=== PATIENT | male | born 1955 | race Caucasian/White ===

== ENCOUNTER 2020-10-06 13:27 | Outpatient (CLI) | payer OTHER, SELFPAY ==
--- NOTE | 2020-10-06 13:56 | ECHO_ITS ---
Patient Info Name: Manny Calvert Age: 64 years : 1955 Gender: Male Ht: 71 in Wt: 230 lbs BSA: 2.32 m2 HR: 57 bpm BP: 158 / 94 mmHg Technical Quality: Good Exam Date: 10/06/2020 2:12 PM Exam Location: [facility] Patient Status: Outpatient Admit Date: 10/06/2020 Staff Ordering Physician: Jose Vela MD Gastroenterology Technician: Eliana Jackson RDCS Attending Provider: Jose Vela MD Referring Physician: Mirian SALCEDO; Exam Type: CA echo doppler color flow Study Info Indications - cardiac murmur Complete two-dimensional, color flow and Doppler transthoracic echocardiogram is performed. Summary 1. Complete two-dimensional, color flow and Doppler transthoracic echocardiogram is performed. 2. Left ventricular chamber dimension is mildly enlarged. 3. Left ventricular systolic function is normal, estimated at 60-65%. 4. There is mildly increased left ventricular wall thickness. 5. The left ventricular diastolic function is grade II diastolic dysfunction. 6. E/e' 9 is minimally elevated. 7. Left atrial chamber dimension is mildly enlarged. 8. There is mild aortic valve sclerosis. 9. There is mild aortic valve regurgitation. 10. There is trace mitral valve regurgitation. 11. No pulmonary hypertension, estimated pulmonary arterial systolic pressure is 21 mmHg. 12. There is trace pulmonic regurgitation. Left Ventricle E/e' 9 is minimally elevated. Left ventricular chamber dimension is mildly enlarged. Left ventricular systolic function is normal, estimated at 60-65%. There is mildly increased left ventricular wall thickness. The left ventricular diastolic function is grade II diastolic dysfunction. Right Ventricle Right ventricular chamber dimension is normal. Right ventricular systolic function is normal. Left Atria Left atrial chamber dimension is mildly enlarged. Right Atria Right atrial chamber dimension is normal. Aortic Valve The aortic valve is trileaflet. There is mild aortic valve sclerosis. There is no aortic valve stenosis. There is mild aortic valve regurgitation. Pulmonic Valve There is trace pulmonic regurgitation. Mitral Valve There is no mitral valve stenosis. There is trace mitral valve regurgitation. Tricuspid Valve There is no tricuspid valve regurgitation. No pulmonary hypertension, estimated pulmonary arterial systolic pressure is 21 mmHg. Pericardium/Pleural There is no pericardial effusion. Inferior Vena Cava Normal inferior vena cava with >50% collapse upon inspiration consistent with normal right atrial pressure, 5 mmHg. Aorta The aortic root size at the sinus of Valsalva is normal. Left Ventricular Outflow Tract Name Value Normal LVOT 2D LVOT Diameter 2.1 cm LVOT Doppler LVOT Peak Gradient 7 mmHg LVOT Mean Gradient 4 mmHg LVOT VTI 30 cm LVOT VTI/AV VTI Ratio 0.7 LVOT Stroke Volume 102 ml Pulmonic Valve Nam
== END 2020-10-06 13:28 | disposition home or self-care (01) ==
PROVIDERS: PCP Family Medicine; Visit Provider Family Medicine
DX: R01.1 Cardiac murmur, unspecified (principal); I35.1 Nonrheumatic aortic (valve) insufficiency
CPT/HCPCS: 93306

== ENCOUNTER 2022-10-20 08:48 | Outpatient (CLI) | payer OTHER, SELFPAY ==
[2022-10-20 18:36] LABS: Anion Gap 6 mmol/L (8-16); Aspartate Amino Transferase 31 U/L (17-59); Bilirubin,Total 0.6 mg/dL (0.2-1.3); Blood Urea Nitrogen 10 mg/dL (9-20); Calcium 8.3 mg/dL (8.4-10.2); Carbon Dioxide 31 mmol/L (22-30); Chloride 101 mmol/L (98-107); Estimated Glomerular Filt Rate > 60; Glucose 100 mg/dL (65-110); Potassium 4.1 mmol/L (3.4-5.0); Sodium 138 mmol/L (137-145)
[2022-10-20 18:37] LABS: Alanine Aminotransferase 25 U/L (6-50); Albumin Level 3.9 g/dL (3.5-5.1); Alkaline Phosphatase 103 U/L (38-126); Cholesterol 161 mg/dL (0-200); HDL Direct 23 mg/dL; Triglycerides 191 mg/dL (<150)
[2022-10-20 18:47] LABS: LDL Cholesterol Direct 103 mg/dL
[2022-10-20 19:03] LABS: Prostate Specific Antigen 0.9 ng/mL (< OR = 4.0)
== END 2022-10-20 08:49 | disposition home or self-care (01) ==
LOC: ANHGOSHLAB 08:50
PROVIDERS: PCP Family Medicine; Visit Provider Family Medicine
DX: E78.2 Mixed hyperlipidemia (principal); I10 Essential (primary) hypertension; Z12.5 Encounter for screening for malignant neoplasm of prostate
CPT/HCPCS: 36415; 80053; 80061; 84153; G0103

== ENCOUNTER 2023-03-23 07:59 | Outpatient (CLI) | payer OTHER, SELFPAY ==
[2023-03-23 18:15] LABS: Hemoglobin 13.3 g/dL (14.0-18.0); Mean Corpuscular HGB Conc 31.7 g/dl (32-36); Mean Corpuscular Hemoglobin 28.4 pg (26-34); Mean Corpuscular Volume 89.6 fl (80-100); Mean Platelet Volume 10.1 fl (7.4-10.4); Platelet Count Result 309 k/mm3 (150-375); Red Blood Count 4.69 M/mm3 (4.6-6.20); White Blood Count 4.1 K/mm3 (4.5-10.0)
[2023-03-23 18:17] LABS: Alanine Aminotransferase 18 U/L (6-50); Albumin Level 3.9 g/dL (3.5-5.1); Alkaline Phosphatase 83 U/L (38-126); Anion Gap 8 mmol/L (8-16); Aspartate Amino Transferase 27 U/L (17-59); Bilirubin,Total 0.9 mg/dL (0.2-1.3); Blood Urea Nitrogen 17 mg/dL (9-20); Calcium 8.7 mg/dL (8.4-10.2); Carbon Dioxide 27 mmol/L (22-30); Chloride 102 mmol/L (98-107); Cholesterol 158 mg/dL (0-200); Estimated Glomerular Filt Rate > 60; Glucose 115 mg/dL (65-110); HDL Direct 35 mg/dL; Potassium 3.7 mmol/L (3.4-5.0); Sodium 137 mmol/L (137-145); Triglycerides 111 mg/dL (<150)
[2023-03-23 18:28] LABS: LDL Cholesterol Direct 97 mg/dL
== END 2023-03-23 08:00 | disposition home or self-care (01) ==
PROVIDERS: PCP Family Medicine; Visit Provider Family Medicine
DX: E78.2 Mixed hyperlipidemia (principal); I10 Essential (primary) hypertension; Z79.899 Other long term (current) drug therapy
CPT/HCPCS: 36415; 80053; 80061; 84443; 85027

== ENCOUNTER 2023-06-25 03:03 | Day surgery (SDC) | payer OTHER, SELFPAY ==
[2023-05-31 09:55] VITALS: BMI 27.3
--- NOTE | 2023-06-22 12:12 | SUR.PREOP ---
Patient called regarding upcoming procedure. Reviewed preop instructions, appointment times, and procedure prep.
[2023-06-25 06:58] VITALS: BP 136/82; PULSE 61; RESP 18; TEMP 36.7; O2SAT 98
[2023-06-25] MEDS: LACTATED RINGERS 1,000 ML 150 ML IV CONT (07:05)
--- NOTE | 2023-06-25 07:10 | WPDANESEPPF ---
Anes - Initial Pre Proc Eval Procedure: Operation Date: 06/25/23 08:00 Proposed Procedures p Colonoscopy - Norm Eisenberg MD Date/Time: 06/25/23 07:10 Surgeon: Norm Eisenberg MD Pre Op Diagnosis: hx colon polyps Patient Data Age: 67 Gender: M Height: 1.8 m Weight: 88.2 kg Last Vital Signs Temp 36.7 C 06/25/23 06:58 Pulse 61 06/25/23 06:58 Resp 18 06/25/23 06:58 BP 136/82 06/25/23 06:58 Pulse Ox 98 06/25/23 06:58 O2 Del Method Room Air 06/25/23 06:58 Allergies Allergy/AdvReac Type Severity Reaction Status Date / Time lisinopril Allergy Severe angioedema Verified 05/31/23 09:53 lip Home Medications Medication Instructions Recorded Confirmed Type amlodipine 10 mg tablet 10 mg PO DAILY #90 tabs 01/24/23 05/31/23 Rx metoprolol succinate 50 mg See Rx Instructions .Route 01/24/23 06/25/23 Rx tablet,extended release 24 hr .COMPLEX #90 tabs spironolactone 25 1 tablet PO DAILY #90 tabs 02/09/23 05/31/23 Rx mg-hydrochlorothiazide 25 mg tablet atorvastatin 40 mg tablet See Rx Instructions .Route 06/20/23 Rx .COMPLEX #90 tabs Patient hx anesthesia problems: none Family hx anesthesia problems: none Results Review: All pre-operative results and documents have been reviewed as part of the pre-operative evaluation. [facility] Past Medical History Medical History Hypercholesterolemia Hypertension Surgical History Surgical History H/O arthroscopic knee surgery H/O hernia repair H/O lumbar discectomy Family History Family History Father Diabetes mellitus Hypertension Family history of lung cancer, Onset Age: 91 Family history of malignant neoplasm of thyroid, Onset Age: 91 Family history of malignant neoplasm of kidney, Onset Age: 91 Other No family history of malignant neoplasm Social History Social History Smoking status: Never smoker Alcohol intake: current Drinks per week: 3 Alcohol use details: occasionnally Substance use: never Substance use type: does not use Lack of Transportation: No Lack of Food: Never True Current Housing: I Have Housing Concerned About Future Housing: No Difficulty Paying Gas/Electric Bills: No Difficulty Paying for Meds: No Currently Unemployed: No Education: High School Diploma/GED Difficulty w/ Childcare or Family Care: No Living arrangements: with family Occupation/Education: occupation Gender identity (if verbalized by the patient): Male Sexual Orientation (if Verbalized by the Patient): Straight or Heterosexual Spiritual care concerns: No Agree to blood products: Yes Anes - Eval Final PreProcedure Day of Procedure 06/25/23 07:10 Patient weight: overweight Heart: regular rate and rhythm Lungs: clear to auscultation Airway: Mallampati scale class II Neurological: alert and oriented Last oral intake: >/= 8 hours Emergent: no Anesthetic plan: proceed Anesthesia type and monitoring: general GIVS and standard monitoring Results Review: All pre-operative results and documents have been reviewed as part of the pre-operative evaluation. Informed Consent: The patient's anesthetic plan and its attendant risks and benefits were discussed with the patient/family/POA. Questions were solicited and answers provided to the satisfaction of the patient/family/POA.
--- NOTE | 2023-06-25 07:53 | PM.HPGS ---
History of Present Illness History of Present Illness Consent: Risks, benefits, and alternatives have been discussed and questions answered. Patient agrees to proceed with procedure. Chief complaint: hx colon polyps Narrative: Manny Calvert is a 67 year old male with colon polyp about 6 years ago Review of Systems Constitutional: Constitutional: Denies headache(s) and Denies weakness Eyes: Eyes: Denies blurry vision ENT: Reports Normal hearing present, Denies headache(s) and Denies neck pain Cardiovascular: Cardiovascular: Denies chest pain and Denies dyspnea Respiratory: Respiratory: Denies dyspnea Gastrointestinal: Gastrointestinal: Reports no additional gastrointestinal complaints Genitourinary: Genitourinary: Denies dysuria Musculoskeletal: Musculoskeletal: Denies neck pain Integumentary/Breasts: Skin/Breast: Denies dry skin Neurologic: Reports Normal hearing present, Denies headache(s) and Denies weakness Psychiatric: Psychiatric: Denies anxiety Endocrine: Endocrine: Denies change in body appearance Hematologic/Lymphatic: Hematologic/Lymphatic: Denies easy bleeding Allergic/Immunologic: Allergic/Immunologic: Denies urticaria PMFSH Past Medical History Medical History Hypercholesterolemia Hypertension Surgical History Surgical History H/O arthroscopic knee surgery H/O hernia repair H/O lumbar discectomy Family History Family History Father Diabetes mellitus Hypertension Family history of lung cancer, Onset Age: 91 Family history of malignant neoplasm of thyroid, Onset Age: 91 Family history of malignant neoplasm of kidney, Onset Age: 91 Other No family history of malignant neoplasm Social History Social History Smoking status: Never smoker Alcohol intake: current Drinks per week: 3 Alcohol use details: occasionnally Substance use: never Substance use type: does not use Lack of Transportation: No Lack of Food: Never True Current Housing: I Have Housing Concerned About Future Housing: No Difficulty Paying Gas/Electric Bills: No Difficulty Paying for Meds: No Currently Unemployed: No Education: High School Diploma/GED Difficulty w/ Childcare or Family Care: No Living arrangements: with family Occupation/Education: occupation Gender identity (if verbalized by the patient): Male Sexual Orientation (if Verbalized by the Patient): Straight or Heterosexual Spiritual care concerns: No Agree to blood products: Yes Meds Home Medications and Allergies Home Medications Medication Instructions Recorded Confirmed Type amlodipine 10 mg tablet 10 mg PO DAILY #90 tabs 01/24/23 05/31/23 Rx metoprolol succinate 50 mg See Rx Instructions .Route 01/24/23 06/25/23 Rx tablet,extended release 24 hr .COMPLEX #90 tabs spironolactone 25 1 tablet PO DAILY #90 tabs 02/09/23 05/31/23 Rx mg-hydrochlorothiazide 25 mg tablet atorvastatin 40 mg tablet See Rx Instructions .Route 06/20/23 Rx .COMPLEX #90 tabs Allergies Allergy/AdvReac Type Severity Reaction Status Date / Time lisinopril Allergy Severe angioedema Verified 05/31/23 09:53 lip Vital Signs Vital Signs - 24 hr 06/25/23 06:58 Temperature 98.1 F Pulse Rate 61 Respiratory Rate 18 Blood Pressure 136/82 Pulse Oximetry 98 Oxygen Delivery Room Air Exam Const: General: comfortable and no acute distress HENMT: Face/Nose/Sinus: Normal nares present Eyes: General: appearance normal, both eyes and all related structures Neck: Neck: no JVD Resp: Auscultation: clear to auscultation bilaterally Cardio: Rate: regular rate Rhythm: regular rhythm GI: Inspection: non-distended GI Palp: Yes Soft to palpation Skin: General skin exam: normal color
[2023-06-25 08:15] VITALS: BP 130/68; PULSE 53; RESP 16; O2SAT 98
[2023-06-25 08:25] VITALS: BP 118/80; PULSE 47; RESP 24; O2SAT 99
[2023-06-25 08:35] VITALS: BP 134/82; PULSE 47; RESP 18; O2SAT 98
== END 2023-06-25 08:43 | disposition home or self-care (01) ==
PROVIDERS: PCP Family Medicine; Visit Provider Internal Medicine Gastroenterology
PROC: 0DJD8ZZ Inspection of Lower Intestinal Tract, Via Natural or Artificial Opening Endoscopic (ICD-10-PCS; CPT 45378; principal; 2023-06-25 08:00)
DX: Z12.11 Encounter for screening for malignant neoplasm of colon (principal); D12.4 Benign neoplasm of descending colon; K64.8 Other hemorrhoids; K57.30 Diverticulosis of large intestine without perforation or abscess without bleeding; I10 Essential (primary) hypertension; E78.00 Pure hypercholesterolemia, unspecified; Z98.890 Other specified postprocedural states; Z98.1 Arthrodesis status; Z80.1 Family history of malignant neoplasm of trachea, bronchus and lung; Z80.8 Family history of malignant neoplasm of other organs or systems; Z80.51 Family history of malignant neoplasm of kidney
CPT/HCPCS: 45385; 88305; J2704; J7120

== ENCOUNTER 2023-07-20 09:48 | Outpatient (CLI) | payer OTHER, SELFPAY ==
[2023-07-20 15:25] LABS: Alanine Aminotransferase 27 U/L (6-50); Albumin Level 4.3 g/dL (3.5-5.1); Alkaline Phosphatase 83 U/L (38-126); Anion Gap 6 mmol/L (8-16); Aspartate Amino Transferase 41 U/L (17-59); Blood Urea Nitrogen 21 mg/dL (9-20); Calcium 9.5 mg/dL (8.4-10.2); Carbon Dioxide 31 mmol/L (22-30); Chloride 101 mmol/L (98-107); Cholesterol 177 mg/dL (0-200); Estimated Glomerular Filt Rate > 60; Glucose 106 mg/dL (65-110); HDL Direct 38 mg/dL; Sodium 138 mmol/L (137-145); Triglycerides 82 mg/dL (<150)
[2023-07-20 15:36] LABS: LDL Cholesterol Direct 118 mg/dL
[2023-07-20 15:55] LABS: Prostate Specific Antigen 1.3 ng/mL (< OR = 4.0)
[2023-07-20 16:41] LABS: Hepatitis C Virus Antibody Negative (Negative)
[2023-07-20 18:38] LABS: Hemoglobin A1C 5.8 % (<5.7)
== END 2023-07-20 09:49 | disposition home or self-care (01) ==
LOC: ANHGOSHLAB 09:50
PROVIDERS: PCP Family Medicine; Visit Provider Nurse Practitioner
DX: Z11.59 Encounter for screening for other viral diseases (principal); Z12.5 Encounter for screening for malignant neoplasm of prostate; E78.2 Mixed hyperlipidemia; R73.01 Impaired fasting glucose
CPT/HCPCS: 36415; 80053; 80061; 83036; 84153; 86803; G0103

== ENCOUNTER 2023-10-22 09:19 | Outpatient (CLI) | payer OTHER, SELFPAY ==
[2023-10-22 12:28] LABS: Hematocrit 42.1 % (42.0-52.0); Hemoglobin 13.6 g/dL (14.0-18.0); Mean Corpuscular HGB Conc 32.3 g/dl (32-36); Mean Corpuscular Hemoglobin 29.1 pg (26-34); Mean Corpuscular Volume 90.1 fl (80-100); Mean Platelet Volume 10.1 fl (7.4-10.4); Platelet Count Result 298 k/mm3 (150-375); Red Blood Count 4.67 M/mm3 (4.6-6.20); Red Cell Distribution Width 13.6 % (11.5-14.5); White Blood Count 3.8 K/mm3 (4.5-10.0)
[2023-10-22 12:35] LABS: Alanine Aminotransferase 20 U/L (6-50); Albumin Level 4.3 g/dL (3.5-5.1); Alkaline Phosphatase 75 U/L (38-126); Anion Gap 9 mmol/L (4-12); Aspartate Amino Transferase 39 U/L (17-59); Bilirubin,Total 0.7 mg/dL (0.2-1.3); Blood Urea Nitrogen 16 mg/dL (9-20); Calcium 8.5 mg/dL (8.4-10.2); Carbon Dioxide 27 mmol/L (22-30); Chloride 104 mmol/L (98-107); Cholesterol 156 mg/dL (0-200); Estimated Glomerular Filt Rate > 60; Glucose 107 mg/dL (65-110); HDL Direct 38 mg/dL; Potassium 3.7 mmol/L (3.4-5.0); Sodium 140 mmol/L (137-145); Triglycerides 66 mg/dL (<150)
[2023-10-22 12:46] LABS: LDL Cholesterol Direct 110 mg/dL
[2023-10-25 12:23] LABS: Hemoglobin A1C 5.6 % (<5.7)
== END 2023-10-22 09:20 | disposition home or self-care (01) ==
PROVIDERS: PCP Nurse Practitioner; Visit Provider Family Medicine
DX: R73.03 Prediabetes (principal); E78.2 Mixed hyperlipidemia; I10 Essential (primary) hypertension; Z79.899 Other long term (current) drug therapy
CPT/HCPCS: 36415; 80053; 80061; 83036; 84443; 85027

== ENCOUNTER 2024-04-28 08:07 | Outpatient (CLI) | payer OTHER, SELFPAY ==
[2024-04-28 20:48] LABS: Hematocrit 44.1 % (42.0-52.0); Hemoglobin 13.8 g/dL (14.0-18.0); Mean Corpuscular HGB Conc 31.3 g/dl (32-36); Mean Corpuscular Volume 92.6 fl (80-100); Mean Platelet Volume 10.2 fl (7.4-10.4); Platelet Count Result 294 k/mm3 (150-375); Red Blood Count 4.76 M/mm3 (4.6-6.20); Red Cell Distribution Width 13.9 % (11.5-14.5); White Blood Count 5.1 K/mm3 (4.5-10.0)
[2024-04-28 22:20] LABS: Alanine Aminotransferase 26 U/L (6-50); Alkaline Phosphatase 75 U/L (38-126); Anion Gap 3 mmol/L (4-12); Aspartate Amino Transferase 53 U/L (17-59); Bilirubin,Total 0.8 mg/dL (0.2-1.3); Blood Urea Nitrogen 21 mg/dL (9-20); Calcium 8.8 mg/dL (8.4-10.2); Carbon Dioxide 30 mmol/L (22-30); Chloride 104 mmol/L (98-107); Cholesterol 161 mg/dL (0-200); Estimated Glomerular Filt Rate > 60; Glucose 97 mg/dL (65-110); HDL Direct 33 mg/dL; Potassium 4.2 mmol/L (3.4-5.0); Sodium 137 mmol/L (137-145); Triglycerides 130 mg/dL (<150)
[2024-04-28 22:31] LABS: LDL Cholesterol Direct 90 mg/dL
[2024-04-28 22:50] LABS: Prostate Specific Antigen 2.3 ng/mL (< OR = 4.0)
== END 2024-04-28 08:08 | disposition home or self-care (01) ==
LOC: ANHGOSHLAB 08:08
PROVIDERS: PCP Nurse Practitioner; Visit Provider Nurse Practitioner
DX: Z12.5 Encounter for screening for malignant neoplasm of prostate (principal); E78.5 Hyperlipidemia, unspecified; R73.03 Prediabetes
CPT/HCPCS: 36415; 80053; 80061; 83036; 84153; 84443; 85027; G0103

== ENCOUNTER 2024-06-26 08:55 | Outpatient (CLI) | payer OTHER, SELFPAY | END 2024-06-26 08:56 | disposition home or self-care (01) | LOC: ANHNEURO 08:57 | PROVIDERS: PCP Family Medicine; Visit Provider Nurse Practitioner | DX: G56.02 Carpal tunnel syndrome, left upper limb (principal) | CPT/HCPCS: 95886; 95909 ==

== ENCOUNTER 2024-10-09 07:52 | Outpatient (CLI) | payer OTHER, SELFPAY ==
--- NOTE | 2024-10-09 07:53 | ECG_ITS ---
Test Date: 2024-10-09 08:21:06 Measurements Intervals [place] Rate: 50 P: 37 NC: 173 QRS: 8 QRSD: 109 T: 23 QT: 462 QTc: 423 Interpretive Statements SINUS BRADYCARDIA BASELINE ARTIFACT- II, III, AVR, AVL, AVF BORDERLINE ECG No previous ECG available for comparison Electronically Signed On 10-09-2024 08:31:00 CDT by Devin Reyna D.O.
[2024-10-09 08:31] LABS: Anion Gap 8 mmol/L (4-12); Blood Urea Nitrogen 18 mg/dL (9-20); Calcium 8.9 mg/dL (8.4-10.2); Carbon Dioxide 26 mmol/L (22-30); Chloride 104 mmol/L (98-107); Estimated Glomerular Filt Rate > 60; Glucose 133 mg/dL (65-110); Potassium 4.1 mmol/L (3.4-5.0); Sodium 138 mmol/L (137-145)
== END 2024-10-09 07:53 | disposition home or self-care (01) ==
LOC: ANHLAB 07:53
PROVIDERS: PCP Nurse Practitioner; Visit Provider Anesthesiology
DX: R73.03 Prediabetes (principal); I10 Essential (primary) hypertension
CPT/HCPCS: 36415; 80048; 93005

== ENCOUNTER 2024-10-23 07:13 | Day surgery (SDC) | payer OTHER, SELFPAY ==
[2024-10-07 13:32] VITALS: BMI 28.3
--- NOTE | 2024-10-23 07:02 | W.PM.PROC2 ---
Procedure Note - Detailed Date of Procedure 10/23/24 Pre-op Diagnosis Left Carpal and Cubital Tunnel Syndrome Post-op Diagnosis Same Procedure Performed left ectr and CuTR Surgeon Slade Hanson MD Cell Repairer nicholas jain pa-c Anesthesia MAC Description of Procedure INFORMED CONSENT: The patient was seen and examined and marked in the pre-op area.? The patient signed the consent form. PROCEDURE IN DETAIL:The patient taken back to OR on the stretcher in supine position. Time out performed with anesthesia, surgeon and staff agreeing on patient's name site and surgery to be performed SCDs were placed on the lower extremities and inflated. A tourniquet was placed on {left} upper extremity and antibiotics given IV After anesthesia administered sedation I injected {10}cc 1%lido with epi and 0.5% marcaine plain at the operative sites The?{left upper extremity}?was prepped and draped in sterile fashion the??{left upper extremity} was? exsanguinated with Esmarch bandage and tourniquet inflated to 250mmHg I made a transverse incision in the {left} volar distal wrist crease through skin and dermis with 15 blade scalpel.? Littler scissors spread down to antebrachial fascia. A small incision was made in antebrachial fascia allowing access to Carpal tunnel. I proceeded with sequential dilation staying in line with the ring finger and hugging the hook of the hamate.? I then used the synovial elevator to free any adhesions from the underside of the transverse carpal ligament. Next I was able to insert the Microaire endoscopic carpal tunnel device with direct visualization of the transverse fibers on the monitor and proceeded with complete segmental retrograde release of the ligament in its entirety.? I irrigated with normal saline and closed with 4-0 monocryl for dermis and subcuticular closure. I next proceeded with making a longitudinal incision between two heads for flexor carpi ulnaris at end of {left} cubital tunnel with 15 blade scalpel.? Littler scissors were used to spread down to FCU fascia.? An incision was made in FCU fascia and ulnar nerve identified exiting cubital tunnel.? I proceeded with complete retrograde release of the cubital tunnel including 7cm proximal for the intermuscular septum.? The nerve appeared healthy with visible vaso nervorum.? There was no subluxation on full elbow range of motion. ? I irrigated with normal saline and closure with 4-0 monocryl for dermis and subcuticular. The incisions were covered with Dermabond then 4x4s, gilmar, and a posterior elbow and volar wrist splint for patient safety, security and comfort and secured with rui bandages after the tourniquet was let down noting the hand was warm and well perfused.? Patient awaken from anesthesia and transferred to recovery in stable condition Complications - none EBL- 1cc Disposition - home in stable condition Nicholas Jain PA-C was essential for positioning, retraction, closure and dressing placement [facility] Billing Surgery - Charge Forward: Surgery Billing ([id number] same for nicholas)
--- NOTE | 2024-10-23 07:03 | PM.HPGS ---
History of Present Illness History of Present Illness Chief complaint: Left Carpal and Cubital Tunnel Syndrome Narrative: Patient seen and examined in pre-operative holding area. No interval change in medical history or symptoms. Patient recalls previous discussion of benefits and alternatives to procedure. Continues to desire to proceed with left endoscopic possible open carpal tunnel release and left cubital tunnel release. Reviewed procedure, post-op expectations and risks including but not limited to bleeding, infection, injury to tendon/nerve/vessel, decreased hand function, stiffness, RSD, no change or worsening of symptoms. I discussed the possible use of assistants and their participation in the case. Patient stated understanding and signed the consent form wishing to proceed. Review of Systems Review of Systems: All systems reviewed & are unremarkable except as noted in HPI and below PMFSH Past Medical History Medical History (Updated 08/25/24 @ 10:09 by Slade Hanson MD) Hypercholesterolemia Hypertension Surgical History Surgical History H/O lumbar discectomy H/O arthroscopic knee surgery H/O hernia repair Family History Family History Father Diabetes mellitus Hypertension Family history of lung cancer, Onset Age: 91 Family history of malignant neoplasm of thyroid, Onset Age: 91 Family history of malignant neoplasm of kidney, Onset Age: 91 Other No family history of malignant neoplasm Social History Social History Smoking status: Never smoker Second hand tobacco smoke exposure: No Alcohol intake: current Drinks per week: 2 Alcohol use details: occasionnally Substance use: never Substance use type: does not use Lack of Transportation: No Lack of Food: Never True Current Housing: I Have Housing Concerned About Future Housing: No Difficulty Paying Gas/Electric Bills: No Difficulty Paying for Meds: No Currently Unemployed: No Education: High School Diploma/GED Difficulty w/ Childcare or Family Care: No Living arrangements: with family Occupation/Education: occupation Gender identity (if verbalized by the patient): Male Sexual Orientation (if Verbalized by the Patient): Straight or Heterosexual Spiritual care concerns: No Agree to blood products: Yes Meds Home Medications and Allergies Home Medications ?Medication ?Instructions ?Recorded ?Confirmed ?Type atorvastatin 40 mg tablet See Rx Instructions .Route 06/11/24 10/23/24 Rx .COMPLEX #90 tabs amlodipine 10 mg tablet See Rx Instructions .Route 07/03/24 10/23/24 Rx .COMPLEX #90 tabs metoprolol succinate 50 mg See Rx Instructions .Route 07/03/24 10/23/24 Rx tablet,extended release 24 hr .COMPLEX #90 tabs spironolactone 25 See Rx Instructions .Route 09/09/24 10/23/24 Rx mg-hydrochlorothiazide 25 mg tablet .COMPLEX #90 tabs tramadol 50 mg tablet 50 mg PO Q6H PRN pain #12 tabs 10/23/24 Rx Allergies Allergy/AdvReac Type Severity Reaction Status Date / Time lisinopril Allergy Severe angioedema Verified 10/23/24 08:12 lip Exam Narrative: unchanged Assessment and Plan Assessment and plan (1) Carpal tunnel syndrome: Qualifiers: Laterality: left Qualified Code(s): G56.02 - Carpal tunnel syndrome, left upper limb Code(s): G56.00 - Carpal tunnel syndrome, unspecified upper limb Status: Acute Assessment and Plan: cont as above (2) Entrapment of left ulnar nerve at elbow: Code(s): G56.22 - Lesion of ulnar nerve, left upper limb Status: Acute
[2024-10-23 08:13] VITALS: BP 138/78; PULSE 50; RESP 17; TEMP 36.6; O2SAT 99
[2024-10-23] MEDS: LACTATED RINGERS 1,000 ML 30 ML IV CONT (08:15)
--- NOTE | 2024-10-23 09:45 | WPDANESEPP ---
Anes - Eval Pre Procedure Procedure: Operation Date: 10/23/24 09:30 Proposed Procedures p Left Endoscopic Carpal Tunnel Release, Possible Open Carpal Tunnel Release - Slade Hanson MD s Left Cubital Tunnel Release - Slade Hanson MD Date/Time: 10/23/24 09:45 Pre Op Diagnosis: Left Carpal and Cubital Tunnel Syndrome Patient Data Age: 68 Gender: M Height: 1.8 m Weight: 93.65 kg Last Vital Signs Temp 97.9 F 10/23/24 08:13 Pulse 50 L 10/23/24 08:13 Resp 17 10/23/24 08:13 BP 138/78 10/23/24 08:13 Pulse Ox 99 10/23/24 08:13 O2 Del Method Room Air 10/23/24 08:13 Allergies Allergy/AdvReac Type Severity Reaction Status Date / Time lisinopril Allergy Severe angioedema Verified 10/23/24 08:12 lip Home Medications ?Medication ?Instructions ?Recorded ?Confirmed ?Type atorvastatin 40 mg tablet See Rx Instructions .Route 06/11/24 10/23/24 Rx .COMPLEX #90 tabs amlodipine 10 mg tablet See Rx Instructions .Route 07/03/24 10/23/24 Rx .COMPLEX #90 tabs metoprolol succinate 50 mg See Rx Instructions .Route 07/03/24 10/23/24 Rx tablet,extended release 24 hr .COMPLEX #90 tabs spironolactone 25 See Rx Instructions .Route 09/09/24 10/23/24 Rx mg-hydrochlorothiazide 25 mg tablet .COMPLEX #90 tabs tramadol 50 mg tablet 50 mg PO Q6H PRN pain #12 tabs 10/23/24 Rx Patient hx anesthesia problems: none Family hx anesthesia problems: none Results Review: All pre-operative results and documents have been reviewed as part of the pre-operative evaluation. [facility] Past Medical History Medical History (Updated 08/25/24 @ 10:09 by Slade Hanson MD) Hypercholesterolemia Hypertension Surgical History Surgical History H/O lumbar discectomy H/O arthroscopic knee surgery H/O hernia repair Family History Family History Father Diabetes mellitus Hypertension Family history of lung cancer, Onset Age: 91 Family history of malignant neoplasm of thyroid, Onset Age: 91 Family history of malignant neoplasm of kidney, Onset Age: 91 Other No family history of malignant neoplasm Social History Social History Smoking status: Never smoker Second hand tobacco smoke exposure: No Alcohol intake: current Drinks per week: 2 Alcohol use details: occasionnally Substance use: never Substance use type: does not use Lack of Transportation: No Lack of Food: Never True Current Housing: I Have Housing Concerned About Future Housing: No Difficulty Paying Gas/Electric Bills: No Difficulty Paying for Meds: No Currently Unemployed: No Education: High School Diploma/GED Difficulty w/ Childcare or Family Care: No Living arrangements: with family Occupation/Education: occupation Gender identity (if verbalized by the patient): Male Sexual Orientation (if Verbalized by the Patient): Straight or Heterosexual Spiritual care concerns: No Agree to blood products: Yes Comments ASA2 Exam Day of Procedure 10/23/24 09:45 Heart: regular rate and rhythm Lungs: clear to auscultation Airway: Mallampati scale class II Neurological: alert and oriented
[2024-10-23] MEDS: ceFAZolin SODIUM 2 GM/20 ML SW SYRINGE IV PUSH (09:56)
[2024-10-23] MEDS: LIDO 1%/EPINEPHRINE 1:100,000 20 ML VIAL 5 ML INFILTRATE (10:08)
[2024-10-23] MEDS: BUPivacaine HCL 0.5% 10 ML AMP 5 ML INFILTRATE (10:08)
--- NOTE | 2024-10-23 10:18 | WPDANESPN ---
Anes - Prog Note Post-Op Date/Time: 10/23/24 10:18 Vital Signs: Last Vital Signs Temp 97.9 F 10/23/24 08:13 Pulse 50 L 10/23/24 08:13 Resp 17 10/23/24 08:13 BP 138/78 10/23/24 08:13 Pulse Ox 99 10/23/24 08:13 O2 Del Method Room Air 10/23/24 08:13 Pain Score (VAS): no pain Patient Feedback: Patient satisfied with anesthetic care.
[2024-10-23 10:29] VITALS: BP 108/72; PULSE 48; RESP 16; O2SAT 94
[2024-10-23 10:39] VITALS: BP 109/72; PULSE 48; RESP 16; O2SAT 95
[2024-10-23 10:49] VITALS: BP 119/70; PULSE 46; RESP 16; O2SAT 96
== END 2024-10-23 11:01 | disposition home or self-care (01) ==
PROVIDERS: PCP Nurse Practitioner; Visit Provider Plastic Surgery
PROC: 01N54ZZ Release Median Nerve, Percutaneous Endoscopic Approach (ICD-10-PCS; CPT 29848; principal; 2024-10-23 09:30)
PROC: (CPT 64718; 2024-10-23 09:30)
DX: G56.02 Carpal tunnel syndrome, left upper limb (principal); G56.22 Lesion of ulnar nerve, left upper limb
CPT/HCPCS: 29848; 64718

== ENCOUNTER 2024-11-04 08:38 | Outpatient (CLI) | payer OTHER, SELFPAY ==
[2024-11-04 12:26] LABS: Alanine Aminotransferase 24 U/L (6-50); Albumin Level 4.1 g/dL (3.5-5.1); Alkaline Phosphatase 78 U/L (38-126); Anion Gap 7 mmol/L (4-12); Aspartate Amino Transferase 44 U/L (17-59); Bilirubin,Total 0.6 mg/dL (0.2-1.3); Blood Urea Nitrogen 21 mg/dL (9-20); Calcium 8.8 mg/dL (8.4-10.2); Carbon Dioxide 27 mmol/L (22-30); Chloride 103 mmol/L (98-107); Cholesterol 155 mg/dL (0-200); Estimated Glomerular Filt Rate > 60; Glucose 112 mg/dL (65-110); HDL Direct 31 mg/dL; Hematocrit 42.2 % (42.0-52.0); Hemoglobin 13.3 g/dL (14.0-18.0); Mean Corpuscular HGB Conc 31.5 g/dl (32-36); Mean Corpuscular Hemoglobin 28.7 pg (26-34); Mean Corpuscular Volume 91.1 fl (80-100); Platelet Count Result 277 k/mm3 (150-375); Potassium 3.8 mmol/L (3.4-5.0); Red Blood Count 4.63 M/mm3 (4.6-6.20); Sodium 137 mmol/L (137-145); Total Protein 7.1 g/dL (6.3-8.2); Triglycerides 113 mg/dL (<150); White Blood Count 5.1 K/mm3 (4.5-10.0)
[2024-11-04 12:30] LABS: Hemoglobin A1C 5.9 % (<5.7)
[2024-11-04 12:57] LABS: Thyroid Stimulating Hormone 1.450 uIU/mL (0.465-4.680)
== END 2024-11-04 08:39 | disposition home or self-care (01) ==
PROVIDERS: PCP Nurse Practitioner; Visit Provider Nurse Practitioner
DX: E78.2 Mixed hyperlipidemia (principal); R73.03 Prediabetes; E03.9 Hypothyroidism, unspecified; I10 Essential (primary) hypertension
CPT/HCPCS: 36415; 80053; 80061; 83036; 84443; 85027